=== PATIENT | male | born 1990 | race Caucasian/White ===

== ENCOUNTER → 2018-05-05 | Outpatient (REF) | payer OTHER | LOC: M LAB REF 13:03 | DX: R21 Rash and other nonspecific skin eruption (principal) ==

== ENCOUNTER 2019-06-05 15:34 | Emergency (ER) | payer OTHER, BC ==
[~2019-06-05] VITALS: Ht 188 cm; Wt 90.9 kg
[2019-06-05 15:44] VITALS: BP 128/69
[2019-06-05] MEDS ORDERED: KETOROLAC 60 MG/2 ML VIAL (J1885) IM ONE (16:00)
[2019-06-05] MEDS ORDERED: IBUP-1022 PO (17:24)
[2019-06-05] MEDS ORDERED: SOMA350T PO (17:24)
--- NOTE | 2019-06-05 17:37 | REP ---
REASON: Trauma. PRIORS: None. TECHNIQUE: 4.5 mm contiguous transaxial sections were obtained from the skull base to the cerebral convexities with thin cuts through the posterior fossa without the administration of intravenous contrast. FINDINGS: The ventricles and sulci are consistent with the patient's age. There are no extra-axial fluid collections. There is no mass effect. The deep cerebral white matter is consistent with the patient's age. The orbital and petrous structures, cerebellopontine angles, and posterior fossa are unremarkable. The sella turcica, cavernous, and paracavernous structures are essentially unremarkable. The visualized portions of the paranasal sinuses and mastoid air cells are clear. Images of the skull base show no gross abnormality. IMPRESSION: Essentially unremarkable CT examination of the brain. Electronically Signed by Saravanan Santana DO 06/06/2019 09:31 A
--- NOTE | 2019-06-06 08:47 | REP ---
REASON: Trauma. Vertebral body height and alignment is within normal limits. The facet joints are well aligned bilaterally. The disc spaces are symmetric throughout. There is no evidence of an acute fracture. There is no abnormal paraspinal soft-tissue swelling. IMPRESSION:No acute fracture. Electronically Signed by Saravanan Santana DO 06/06/2019 09:48 A
--- NOTE | 2019-06-06 09:05 | REP ---
REASON: Trauma. Vertebral body height and alignment is within normal limits. Mild anterior lipping is seen at L3 through L5. Symmetric appearing disc spaces throughout. No evidence of an acute fracture. IMPRESSION:Mild chronic changes. There is a Schmorl's node involving the superior endplate of T12. Electronically Signed by Saravanan Santana DO 06/06/2019 09:49 A
== END 2019-06-05 17:34 | disposition home or self-care (01) ==
LOC: M ED 15:34 → EDBD 15:34 → M ED 17:34
DX: S33.5XXA Sprain of ligaments of lumbar spine, initial encounter (principal); S09.90XA Unspecified injury of head, initial encounter; T14.8XXA Other injury of unspecified body region, initial encounter; V69.9XXA Occupant (driver) (passenger) of heavy transport vehicle injured in unspecified traffic accident, initial encounter; Y92.410 Unspecified street and highway as the place of occurrence of the external cause
CPT/HCPCS: 70450; 72125; 72131; 96372; 99284; J1885; J3360

== ENCOUNTER → 2019-11-16 | Outpatient (CLI) | payer BC ==
[~2019-11-16] MED LIST: IBUP-1022 PO; SOMA350T PO
--- NOTE | 2019-11-16 18:58 | REP ---
Thoracic spine series: Three views. History: Pain. Comparison scoliosis radiographs are from February 24, 2008. Findings: Thoracic vertebral body heights are preserved. There is straightening of the normal thoracic kyphosis on the lateral radiograph. Alignment is normal. Disc spaces are maintained. Pedicles and posterior elements are intact. There is a subtle dextroconvex curvature on the frontal view. Impression: Straightening. No acute bony abnormality. Electronically Signed by Amor Ybarra MD 11/16/2019 09:12 P
== END ==
LOC: M WUC 14:44
PROVIDERS: ATTEND Family Medicine
DX: M54.6 Pain in thoracic spine (principal)

== ENCOUNTER → 2019-11-16 | Outpatient (REF) | payer BC ==
[2019-11-16 14:42] LABS: SEMEN APPEARANCE OPAQUE (OPAQUE); SEMEN VISCOSITY LIQUID (LIQUID); SEMEN VOLUME 7.5 ml (2.0-5.0); WBC CONCENTRATION <=1 M/ml (<=1 M/ml)
== END ==
LOC: M LAB REF 14:19
PROVIDERS: ATTEND Family Medicine
DX: N46.9 Male infertility, unspecified (principal)

== ENCOUNTER → 2021-03-30 | Outpatient (CLI) | payer BC | LOC: M PLALAB 12:42 | PROVIDERS: ATTEND Advanced Practice Midwife | DX: Z31.440 Encounter of male for testing for genetic disease carrier status for procreative management (principal) ==

== ENCOUNTER → 2022-03-31 | Outpatient (CLI) | payer BC | LOC: M WUC 13:06 | PROVIDERS: ATTEND Family Medicine | DX: M54.2 Cervicalgia (principal) ==

== ENCOUNTER → 2024-05-16 | Outpatient (CLI) | payer BC | LOC: M RAD 13:18 | PROVIDERS: ATTEND Family Medicine | DX: M25.571 Pain in right ankle and joints of right foot (principal); I82.401 Acute embolism and thrombosis of unspecified deep veins of right lower extremity ==

== ENCOUNTER → 2024-11-27 | Outpatient (CLI) | payer BC | LOC: M RAD 07:52 | PROVIDERS: ATTEND Family Medicine | DX: R74.01 Elevation of levels of liver transaminase levels (principal); K76.0 Fatty (change of) liver, not elsewhere classified; R16.0 Hepatomegaly, not elsewhere classified ==